=== PATIENT | male | born 1990 | race Caucasian/White ===

== ENCOUNTER 2017-10-15 04:59 | Observation (INO) | payer MEDICAID ==
[2017-10-15] MEDS ORDERED: Sodium Chloride 0.9% 1,000 ML IV ONE ×3 (05:12→06:30)
[2017-10-15] MEDS ORDERED: Magnesium Sulfate/Water 2 GM in Premix Bag 1 BAG IV ONE (05:14)
[2017-10-15] MEDS ORDERED: Diltiazem 25 MG/5 ML SDV IVPUSH ONE (05:16)
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
[2017-10-15 05:31] LABS: CHLORIDE,CL 101 mmol/L (98-107)
[2017-10-15] MEDS ORDERED: Diltiazem 100 MG in Sodium Chloride 0.9% 100 ML IV SCH (05:45)
[2017-10-15 05:50] LABS: SODIUM,NA 141 mmol/L (136-145)
[2017-10-15] MEDS ORDERED: Enoxaparin 40 MG/0.4 ML Syringe SUBCUT ONE (05:52)
[2017-10-15] MEDS ORDERED: Ondansetron 4 MG/2 ML SDV IVPUSH ONE (06:02)
[2017-10-15] MEDS ORDERED: LORazepam 2 MG/ML MDV IVPUSH ONE (06:02)
[2017-10-15] MEDS: Sodium Chloride 0.9% 10 ML Syringe FLUSH SCH ×5 (06:07→20:08)
[2017-10-15] MEDS ORDERED: Diltiazem 25 MG/5 ML SDV IVPUSH PRN (07:12)
[2017-10-15] MEDS ORDERED: Thiamine 100 MG in Sodium Chloride 0.9% 100 ML IV ONE (07:28)
[2017-10-15] MEDS ORDERED: Acetaminophen 325 MG Tab PO PRN (08:00)
[2017-10-15] MEDS: Enoxaparin 40 MG/0.4 ML Syringe SUBCUT SCH ×2 (08:13→08:51)
[2017-10-15] MEDS: Diltiazem 180 MG Cap.CD PO SCH (08:51)
[2017-10-15] MEDS: Nicotine 21 MG/24 Hr Patch TRDERM SCH (08:59)
--- NOTE | 2017-10-15 17:27 | PCM.SN ---
- Free Text/Narrative Note: Oral Cardizem CD was started this morning. Note that patient has successfully been titrated off of the diltiazem infusion. Serial cardiac enzymes negative to this point. TSH is also normal. Additional low-dose Lopressor will be started this afternoon secondary to occasional mild breakthrough tachycardia. Atrial fibrillation persists. Blood work and EKG to be repeated in the a.m. with additional glycosylated hemoglobin and fasting lipid panel as workup for cardiac risk factors for possible heart disease. Cardiology consultation depending on his clinical course with further cardiac workup recommended on an outpatient basis, including echocardiogram DEON and probable Cardiolite stress test. Continue high-dose subacute cutaneous Lovenox therapy for now with consideration of Coumadin therapy in the future and/or at discharge depending on echocardiogram results and/or if atrial fibrillation persists/reoccurs. Tobacco and alcohol cessation strongly encouraged. Continue to observe his LFTs closely by his regular providers with consideration of abdominal ultrasound tomorrow, if significant LFTs elevation persists. Extensive precautions were given to the patient, who is in agreement with the treatment plan.
[2017-10-15] MEDS: Metoprolol Tartrate 25 MG Tab PO SCH (17:50)
[2017-10-15] MEDS: LORazepam 2 MG/ML MDV IVPUSH PRN ×2 (17:51→23:53)
[2017-10-15] MEDS ORDERED: Thiamine 100 MG Tab PO SCH (20:00)
[2017-10-16 07:41] LABS: CHLORIDE,CL 101 mmol/L (98-107); SODIUM,NA 138 mmol/L (136-145)
[2017-10-16] MEDS: Metoprolol Tartrate 25 MG Tab PO SCH (07:43)
[2017-10-16] MEDS: Enoxaparin 40 MG/0.4 ML Syringe SUBCUT SCH (07:43)
[2017-10-16] MEDS: Diltiazem 180 MG Cap.CD PO SCH (07:43)
[2017-10-16] MEDS: Nicotine 21 MG/24 Hr Patch TRDERM SCH (07:44)
[2017-10-16] MEDS ORDERED: Enoxaparin 80 MG/0.8 ML Syringe SUBCUT SCH (08:00)
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
== END 2017-10-16 12:30 | disposition home or self-care (01) ==
LOC: LL.ED 04:59 → LL.MS 06:25 → UNDOADMOB 06:25
PROVIDERS: ADMIT Emergency Medicine; ATTEND Family Medicine
DX: I48.91 Unspecified atrial fibrillation (principal); F10.99 Alcohol use, unspecified with unspecified alcohol-induced disorder; R79.89 Other specified abnormal findings of blood chemistry; I10 Essential (primary) hypertension; F17.210 Nicotine dependence, cigarettes, uncomplicated; G89.21 Chronic pain due to trauma; F41.9 Anxiety disorder, unspecified; K76.0 Fatty (change of) liver, not elsewhere classified; D58.2 Other hemoglobinopathies; Z78.9 Other specified health status; Z88.1 Allergy status to other antibiotic agents
CPT/HCPCS: 36415; 71046; 76700; 80053; 80061; 80305; 81001; 82150; 82272; 82550; 82553; 82607; 82746; 82977; 83036; 83690; 83735; 83880; 84443; 84484; 85025; 85379; 85610; 85730; 93005; 96365; 96372; 96375; 99285; A9270; G0480; J1650; J2060; J2405; J3411; J3490; J7030; J7050; J3475

== ENCOUNTER 2019-11-15 18:39 | Emergency (ER) | payer MEDICAID, OTHER ==
[2019-11-15 19:23] LABS: CHLORIDE,CL 105 mmol/L (98-107); SODIUM,NA 142 mmol/L (136-145)
[2019-11-15] MEDS: Ketorolac 30 MG/ML SDV IVPUSH ONE (19:52)
[2019-11-15] MEDS: Sodium Chloride 0.9% 1,000 ML IV ONE ×2 (19:53→20:59)
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
== END 2019-11-15 22:20 | disposition home or self-care (01) ==
LOC: LL.ED 18:39
DX: J06.9 Acute upper respiratory infection, unspecified (principal); F17.210 Nicotine dependence, cigarettes, uncomplicated; I10 Essential (primary) hypertension; I48.91 Unspecified atrial fibrillation; F41.9 Anxiety disorder, unspecified; Z79.899 Other long term (current) drug therapy; Z88.8 Allergy status to other drugs, medicaments and biological substances
CPT/HCPCS: 36415; 71045; 80053; 83605; 85025; 87040; 87081; 87430; 87804; 96361; 96374; 99284-25; J1885; J7030; U0002